=== PATIENT | female | born 1990 | race Caucasian/White ===

== ENCOUNTER 2021-11-01 12:02 | Inpatient (IN) ==
[2021-11-01] MEDS ORDERED: OXYTOCIN 30 UNITS/500 ML BAG IV PRN (22:58)
[2021-11-01] MEDS ORDERED: PATIENT'S ALLERGY INFO NEEDS ENTERED SCH (23:15)
[2021-11-01 23:22] LABS: Hematocrit (blood only) 38.5 % (37-47); Hemoglobin 13.2 g/dL (12.0-16.0); Mean Corpuscular Hemoglobin 31.1 pg (25-34); Mean Corpuscular Hgb Conc 34.3 g/dL (32-36); Mean Corpuscular Volume 90.6 fL (80-100); Mean Platelet Volume 11.4 fL (7.4-10.4); Platelet Count 231 K/uL (130-400); RDW Coefficient of Variation 14.7 % (11.5-14.5); RDW Standard Deviation 48.1 fL (36.4-46.3); Red Blood Count 4.25 M/uL (4.2-5.4); White Blood Count 15.05 K/uL (4.8-10.8)
[2021-11-01] MEDS: LACTATED RINGER'S 1,000 ML IV PRN (23:46)
[2021-11-01] MEDS ORDERED: DINOPROSTONE 10 MG INSERT PV ONE (23:48)
[2021-11-02] MEDS: LACTATED RINGER'S 1,000 ML IV PRN ×3 (05:06→16:52)
[2021-11-02] MEDS ORDERED: BUTORPHANOL TARTRATE 1 MG/ML VIAL IV PRN (09:43)
[2021-11-02] MEDS ORDERED: BUTORPHANOL TARTRATE 1 MG/ML VIAL ONE (09:49)
[2021-11-02] MEDS ORDERED: ePHEDrine sulfate 50 MG/ML AMP ONE (13:01)
[2021-11-02] MEDS ORDERED: SODIUM CHLORIDE 0.9% INJ 10 ML VIAL ONE (13:01)
[2021-11-02] MEDS ORDERED: fentaNYL 2MCG/ML ROPIVACAINE 1.25MG/ML 100 ML BAG EPI ONE (13:01)
[2021-11-02] MEDS ORDERED: BUPIVACAINE 0.25% 30 ML VIAL ONE (13:01)
[2021-11-02] MEDS ORDERED: fentaNYL citrate 100 MCG/2 ML VIAL ONE (13:01)
[2021-11-02] MEDS ORDERED: ePHEDrine sulfate 50 MG/ML AMP IV PRN (13:17)
[2021-11-02] MEDS ORDERED: diphenhydrAMINE 50 MG/ML VIAL IV PRN (13:17)
[2021-11-02] MEDS ORDERED: NALOXONE HCL 1 MG in SODIUM CHLORIDE 0.9% 1000ML 1,000 ML IV PRN (13:17)
[2021-11-02] MEDS ORDERED: NALOXONE HCL 0.4 MG/1 ML VIAL/CARP IV PRN (13:17)
[2021-11-02] MEDS ORDERED: ONDANSETRON INJ 2 MG/ML 2 ML VIAL IV PRN (13:17)
[2021-11-02] MEDS ORDERED: NALBUPHINE HCL INJ 10 MG/ML AMP IV PRN (13:17)
--- NOTE | 2021-11-02 13:17 | Anesthesiology Consultation ---
Date of Service November 02, 2021 Assessment & Plan (1) Encounter for pre-operative examination: Chart Review Chart Review: Patient NOT seen in Pre Admission Testing and Acceptable Risk for Labor Epidural Consults Requested none History Height/Weight Height: 5 ft 5 in Weight: 84.368 kg Allergies Allergy/AdvReac Type Severity Reaction Status Date / Time amoxicillin [From Augmentin] Allergy Rash Verified 11/01/21 23:32 clavulanic acid Allergy Rash Verified 11/01/21 23:32 [From Augmentin] Medications Home Medications Medication Instructions Recorded Confirmed Last Taken sertraline 25 mg tablet (Zoloft) 25 mg PO DAILY 11/01/21 11/01/21 11/01/21 Active Medications Generic Name Dose Route Start Last Admin Trade Name Freq PRN Reason Stop Dose Admin Butorphanol Tartrate 1 mg 11/02/21 09:43 11/02/21 09:54 Butorphanol Tartrate 1 Mg/Ml Vial IV 1 mg PRN PRN Administration Pain Lactated Ringer's 1,000 mls @ 125 mls/hr 11/01/21 22:58 11/02/21 12:52 Lr IV 11/03/21 22:57 999 mls/hr .Q8H PRN Administration L&D Protocol Protocol Past Medical History Medical History Depression with anxiety Social History Smoking Status: Never smoker Hx Alcohol Use: No Hx Substance Use: No Physical Exam Vital Signs Last Vital Signs Temp 36.7 C 11/02/21 07:32 Pulse 122 H 11/02/21 13:10 Resp 22 11/02/21 07:32 BP 122/66 11/02/21 07:34 Pulse Ox 98 11/02/21 13:10 Testing Laboratory Results 11/01/21 23:10
[2021-11-02] MEDS: fentaNYL 2MCG/ML ROPIVACAINE 1.25MG/ML 100 ML BAG EPI PRN ×2 (13:45→22:53)
[2021-11-02] MEDS ORDERED: OXYTOCIN 30 UNITS/500 ML BAG IV PRN (13:52)
[2021-11-02] MEDS ORDERED: CALCIUM CARBONATE 500 MG CHEWABLE TAB PO PRN (19:02)
[2021-11-03] MEDS: LACTATED RINGER'S 1,000 ML IV PRN (00:36)
[2021-11-03] MEDS ORDERED: LIDOCAINE 2%/EPINEPHRINE 1:200,000 20 ML SDV ONE (01:54)
[2021-11-03] MEDS ORDERED: CITRIC ACID/SODIUM CITRATE 15 ML UDC PO SCH (02:00)
[2021-11-03] MEDS ORDERED: cefOXitin 2,000 MG in DEXTROSE 5% 50 ML IV SCH (02:00)
[2021-11-03] MEDS ORDERED: ONDANSETRON INJ 2 MG/ML 2 ML VIAL ONE (02:37)
[2021-11-03] MEDS ORDERED: MoRPHine SULFATE PF 1 MG/ML 10 ML AMP/VIAL ONE (02:37)
[2021-11-03] MEDS ORDERED: KETOROLAC 30 MG/ML VIAL ONE (03:03)
[2021-11-03] MEDS ORDERED: OXYTOCIN 10 UNITS/ML 10ML VIAL ONE ×4 (03:03→03:08)
[2021-11-03] MEDS ORDERED: MAGNESIUM HYDROXIDE SUSP 30 ML UDC PO PRN (03:31)
[2021-11-03] MEDS ORDERED: SUPERCREAM 0.870% 15 GM JAR EXT PRN (03:31)
[2021-11-03] MEDS ORDERED: SENNA 8.6 MG TAB PO PRN (03:31)
[2021-11-03] MEDS ORDERED: DIPHTHERIA/TETANUS/PERTUSSIS 0.5 ML SYR/VIAL IM ONE (03:31)
[2021-11-03] MEDS ORDERED: ONDANSETRON INJ 2 MG/ML 2 ML VIAL IV PRN (03:31)
[2021-11-03] MEDS ORDERED: BENZOCAINE 20% AER SPR 82.5 GM CAN EXT PRN (03:31)
[2021-11-03] MEDS ORDERED: HYDROCORTISONE ACETATE 25 MG SUPP PR PRN (03:31)
--- NOTE | 2021-11-03 03:31 | Post Operative Brief Note ---
Immediate Post Op Note v1 Date of Surgery November 03, 2021 Pre & Post Diagnosis Operation Date: 11/03/21 01:30 Pre-Op Diagnosis: 1. Cephalopelvic Disproportion Post-Op Diagnosis: Same as pre operative I identified the patient and participated in the time-out.: Yes Procedure Operation Date: 11/03/21 01:30 Actual Procedures p Section in LD(Bilateral) - Perez Giordano MD Surgeon Perez Giordano MD Parliamentary Librarian none Estimated Blood Loss 550 Findings Consistent with Post-Op Diagnosis Drains Bailey Catheter Anesthesia Type Labor Epidural Complications none
[2021-11-03] MEDS ORDERED: OXYTOCIN 20 UNITS in LACTATED RINGER'S 20 ML IV SCH (03:45)
[2021-11-03] MEDS ORDERED: LACTATED RINGER'S 1,000 ML IV SCH (03:45)
[2021-11-03] MEDS ORDERED: HYDROmorphone INJ 0.5 MG/0.5 ML SYR IV PRN (03:49)
[2021-11-03] MEDS ORDERED: diphenhydrAMINE 50 MG/ML VIAL IV PRN ×2 (03:49→21:50)
[2021-11-03] MEDS ORDERED: ACETAMINOPHEN 1000 MG/100 ML IV IV PRN (03:49)
[2021-11-03] MEDS ORDERED: ePHEDrine sulfate 50 MG/ML AMP IV PRN (03:49)
[2021-11-03] MEDS ORDERED: NALOXONE HCL 1 MG in SODIUM CHLORIDE 0.9% 1000ML 1,000 ML IV PRN (03:49)
[2021-11-03] MEDS ORDERED: PROMETHAZINE HCL 25 MG in SODIUM CHLORIDE 0.9% 50 ML IV PRN ×2 (03:49→21:50)
[2021-11-03] MEDS ORDERED: NALOXONE HCL 0.08 MG in SYRINGE 1.8 ML IV PRN (03:49)
[2021-11-03] MEDS ORDERED: NALBUPHINE HCL INJ 10 MG/ML AMP IV PRN (03:49)
[2021-11-03] MEDS ORDERED: NALOXONE HCL 0.4 MG/1 ML VIAL/CARP IV PRN (03:49)
[2021-11-03] MEDS ORDERED: MoRPHine SULFATE PF 1 MG/ML 10 ML AMP/VIAL EPI ONE (03:49)
[2021-11-03] MEDS ORDERED: LACTATED RINGER'S 500 ML IV PRN (03:49)
--- NOTE | 2021-11-03 03:49 | Anesthesia Procedure Note ---
Date of Service November 03, 2021 Anesthesia Post Epidural Note Vital Signs Vital Signs: Temp Pulse Resp BP Pulse Ox 37.2 C 81 20 103/52 L 94 11/03/21 01:48 11/03/21 03:44 11/03/21 01:55 11/03/21 03:41 11/03/21 03:44 Notes Mental Status: alert / awake / arousable and participated in evaluation Nausea / Vomiting: adequately controlled Pain: adequately controlled Airway Patency, RR, SpO2: stable & adequate BP & HR: stable & adequate Hydration State: stable & adequate Neuraxial Anesthesia: was administered and sensory block is resolving Anesthetic Complications: no major complications apparent and Pt Satisfied with anesthetic care Epidural: Removed without complications and With tip intact
[2021-11-03] MEDS ORDERED: NO NARCOTICS OR SEDATIVES SCH (04:00)
[2021-11-03] MEDS ORDERED: DC INTRASPINAL MORPHINE SCH (04:00)
[2021-11-03] MEDS ORDERED: SODIUM CHLORIDE 0.9% 1000ML 1,000 ML IV SCH ×2 (04:00→06:00)
--- NOTE | 2021-11-03 04:52 | Anesthesiology Progress Note ---
Date of Service November 03, 2021 Anesthesia Post Procedure Vital Signs Vital Signs: Temp Pulse Resp BP Pulse Ox 11/03/21 04:51 97 H 121/56 L 11/03/21 04:47 96 H 97 11/03/21 04:42 93 H 97 11/03/21 04:41 94 H 120/64 11/03/21 04:37 97 H 96 11/03/21 04:32 101 H 96 11/03/21 04:31 118/59 L 11/03/21 04:27 101 H 96 11/03/21 04:22 105 H 114/58 L 95 11/03/21 04:17 98 H 96 11/03/21 04:12 99 H 96 11/03/21 04:11 96 H 109/59 L 11/03/21 04:07 101 H 95 11/03/21 04:06 98 H 93 11/03/21 04:02 96 H 98 11/03/21 04:00 85 103/58 L 11/03/21 03:57 87 97 11/03/21 03:52 85 99/51 L 97 11/03/21 03:50 18 11/03/21 03:49 88 94 11/03/21 03:47 82 96 11/03/21 03:44 81 94 11/03/21 03:42 82 96 11/03/21 03:41 80 103/52 L 11/03/21 03:40 37.9 C H 18 11/03/21 02:09 127 H 121/64 11/03/21 02:08 131 H 95 11/03/21 02:06 125 H 131/75 11/03/21 02:03 121 H 92 11/03/21 01:58 112 H 98 11/03/21 01:55 20 11/03/21 01:53 111 H 96 11/03/21 01:48 37.2 C 120 H 94 11/03/21 01:43 113 H 96 11/03/21 01:38 119 H 96 11/03/21 01:33 111 H 97 11/03/21 01:30 20 11/03/21 01:29 101 H 129/65 11/03/21 01:28 109 H 97 11/03/21 01:23 106 H 96 11/03/21 01:18 115 H 95 11/03/21 01:15 20 11/03/21 01:13 138 H 97 11/03/21 01:08 111 H 97 11/03/21 01:07 126 H 86 L 11/03/21 01:03 109 H 93 11/03/21 01:00 20 11/03/21 00:59 110 H 121/70 11/03/21 00:57 125 H 93 11/03/21 00:52 115 H 96 11/03/21 00:50 36.8 C 11/03/21 00:47 110 H 96 11/03/21 00:45 20 11/03/21 00:42 103 H 97 11/03/21 00:37 115 H 98 11/03/21 00:32 114 H 98 11/03/21 00:30 20 11/03/21 00:29 121 H 121/82 11/03/21 00:28 122 H 81 L 11/03/21 00:26 123 H 98 11/03/21 00:21 136 H 83 L 11/03/21 00:19 130 H 84 L 11/03/21 00:16 119 H 117/73 94 11/03/21 00:15 20 11/03/21 00:11 130 H 86 L 11/03/21 00:06 127 H 94 11/03/21 00:01 127 H 82 L 11/03/21 00:00 20 11/02/21 23:59 121 H 82 L 11/02/21 23:56 115 H 94 11/02/21 23:52 114 H 82 L 11/02/21 23:51 115 H 97 11/02/21 23:46 121 H 134/68 11/02/21 23:45 116 H 20 84 L 11/02/21 23:40 115 H 94 11/02/21 23:35 117 H 96 11/02/21 23:32 126 H 85 L 11/02/21 23:31 117 H 125/74 11/02/21 23:30 120 H 20 97 11/02/21 23:25 141 H 95 11/02/21 23:20 117 H 91 11/02/21 23:15 37.4 C 113 H 18 93 11/02/21 23:14 113 H 117/57 L 11/02/21 23:10 115 H 95 11/02/21 23:05 109 H 96 11/02/21 23:00 112 H 18 116/56 L 94 11/02/21 22:55 113 H 98 11/02/21 22:50 113 H 97 11/02/21 22:45 118 H 95 11/02/21 22:44 112 H 125/69 11/02/21 22:40 113 H 95 11/02/21 22:35 110 H 99 11/02/21 22:30 117 H 18 100 11/02/21 22:29 109 H 125/72 11/02/21 22:25 108 H 95 11/02/21 22:20 114 H 99 11/02/21 22:19 130 H 84 L 11/02/21 22:15 111 H 97 11/02/21 22:14 109 H 117/60 11/02/21 22:10 111 H 95 11/02/21 22:05 112 H 95 11/02/21 22:01 108 H 114/56 L 11/02/21 22:00 113 H 18 95 11/02/21 21:56 122 H 91 11/02/21 21:55 123 H 94 11/02/21 21:50 114 H 95 11/02/21 21:45 106 H 94 11/02/21 21:44 112 H 112/65 11/02/21 21:40 117 H 95 11/02/21 21:35 104 H 99 11/02/21 21:30 121 H 18 97 11/02/21 21:29 108 H 122/72 11/02/21 21:28 107 H 90 11/02/21 21:25 99 H 99 11/02/21 21:21 109 H 89 L 11/02/21 21:20 37.8 C H 105 H 99 11/02/21 21:15 104 H 125/79 94 11/02/21 21:10 104 H 96 11/02/21 21:05 106 H 99 11/02/21 21:01 113 H 90 11/02/21 21:00 110 H 18 136/89 95 11/02/21 20:55 102 H 98 11/02/21 20:50 100 H 97 11/02/21 20:45 110 H 119/74 96 11/02/21 20:40 105 H 98 11/02/21 20:35 107 H 97 11/02/21 20:30 104 H 18 96 11/02/21 20:29 100 H 119/73 11/02/21 20:25 109 H 96 11/02/21 20:24 112 H 88 L 11/02/21 20:20 101 H 99 11/02/21 20:16 97 H 132/80 11/02/21 20:15 106 H 94 11/02/21 20:14 103 H 87 L 11/02/21 20:10 93 H 96 11/02/21 20:05 98 H 95 11/02/21 20:00 108 H 94 11/02/21 19:59 100 H 102/56 L 11/02/21 19:55 94 H 95 11/02/21 19:50 99 H 94 11/02/21 19:45 101 H 102/59 L 95 11/02/21 19:40 102 H 95 11/02/21 19:35 98 H 96 11/02/21 19:30 92 H 18 96 11/02/21 19:29 100 H 96/52 L 11/02/21 19:25 96 H 96 11/02/21 19:20 98 H 96 11/02/21 19:16 36.9 C 90 18 97/53 L 11/02/21 19:15 98 H 89/51 L 95 11/02/21 19:12 36.9 C 18 11/02/21 19:10 103 H 92 11/02/21 19:09 120 H 89 L 11/02/21 19:05 116 H 96 11/02/21 19:01 105 H 121/68 11/02/21 19:00 106 H 98 11/02/21 18:55 102 H 94 11/02/21 18:50 93 H 95 11/02/21 18:46 100 H 111/67 11/02/21 18:45 96 H 96 11/02/21 18:40 104 H 95 11/02/21 18:35 105 H 95 11/02/21 18:30 92 H 95 11/02/21 18:29 100 H 106/64 11/02/21 18:25 91 H 94 11/02/21 18:22 112 H 89 L 11/02/21 18:20 94 H 94 11/02/21 18:15 105 H 107/63 95 11/02/21 18:10 96 H 95 11/02/21 18:05 100 H 95 11/02/21 18:00 98 H 97 11/02/21 17:59 93 H 109/67 11/02/21 17:57 98 H 83 L 11/02/21 17:55 100 H 94 11/02/21 17:50 100 H 95 11/02/21 17:45 104 H 111/68 97 11/02/21 17:42 98 H 93 11/02/21 17:40 99 H 95 11/02/21 17:36 100 H 92 11/02/21 17:35 92 H 85 L 11/02/21 17:31 98 H 89 L 11/02/21 17:30 101 H 96 11/02/21 17:29 88 103/57 L 11/02/21 17:25 36.7 C 96 H 18 96 11/02/21 17:20 98 H 95 11/02/21 17:19 96 H 93 11/02/21 17:15 98 H 97 11/02/21 17:14 100 H 106/61 11/02/21 17:10 100 H 96 11/02/21 17:08 94 H 94 11/02/21 17:05 97 H 96 11/02/21 17:00 94 H 113/60 99 11/02/21 16:59 99 H 92 11/02/21 16:55 102 H 98 11/02/21 16:52 97 H 91 11/02/21 16:50 99 H 95 11/02/21 16:47 111 H 92 11/02/21 16:45 107 H 98 11/02/21 16:40 98 H 97 11/02/21 16:35 107 H 98 11/02/21 16:30 98 H 96 11/02/21 16:29 100 H 110/62 11/02/21 16:26 94 H 94 11/02/21 16:25 90 95 11/02/21 16:20 96 H 96 11/02/21 16:15 98 H 97 11/02/21 16:14 98 H 119/56 L 11/02/21 16:10 91 H 98 11/02/21 16:08 101 H 94 11/02/21 16:05 109 H 97 11/02/21 16:00 108 H 98 11/02/21 15:59 101 H 134/59 L 11/02/21 15:55 102 H 97 11/02/21 15:50 104 H 98 11/02/21 15:45 92 H 95 11/02/21 15:44 100 H 110/59 L 11/02/21 15:42 96 H 94 11/02/21 15:40 100 H 95 11/02/21 15:36 91 H 94 11/02/21 15:35 100 H 95 11/02/21 15:30 94 H 96 11/02/21 15:29 102 H 111/60 11/02/21 15:25 100 H 96 11/02/21 15:22 98 H 93 11/02/21 15:20 105 H 97 11/02/21 15:15 94 H 106/59 L 96 11/02/21 15:10 100 H 96 11/02/21 15:05 96 H 97 11/02/21 15:00 98 H 96 11/02/21 14:55 99 H 97 11/02/21 14:50 96 H 97 11/02/21 14:45 98 H 97 11/02/21 14:44 93 H 109/64 11/02/21 14:40 100 H 98 11/02/21 14:36 118 H 93 11/02/21 14:35 115 H 100 11/02/21 14:30 99 H 98 11/02/21 14:29 102 H 109/65 11/02/21 14:27 101 H 112/68 11/02/21 14:25 117 H 105/63 97 11/02/21 14:23 115 H 103/57 L 11/02/21 14:21 111 H 119/60 11/02/21 14:20 116 H 97 11/02/21 14:19 116 H 113/55 L 11/02/21 14:17 120 H 107/68 11/02/21 14:15 126 H 98 11/02/21 14:14 110 H 107/62 11/02/21 14:13 113 H 110/59 L 11/02/21 14:11 129 H 112/65 11/02/21 14:10 130 H 98 11/02/21 14:09 116 H 112/65 11/02/21 14:07 129 H 108/59 L 11/02/21 14:05 124 H 107/61 98 11/02/21 14:03 120 H 114/64 11/02/21 14:01 58 L 103/58 L 11/02/21 14:00 118 H 98 11/02/21 13:58 120 H 100/56 L 11/02/21 13:57 125 H 100/59 L 11/02/21 13:55 126 H 112/57 L 98 11/02/21 13:53 116 H 116/59 L 11/02/21 13:51 112 H 120/56 L 11/02/21 13:50 109 H 98 11/02/21 13:49 111 H 162/63 H 11/02/21 13:47 118 H 115/61 11/02/21 13:45 119 H 113/68 98 11/02/21 13:43 102 H 113/78 11/02/21 13:41 86 123/80 11/02/21 13:40 94 H 98 11/02/21 13:35 113 H 98 11/02/21 13:30 116 H 98 11/02/21 13:27 36.7 C 11/02/21 13:25 119 H 99 11/02/21 13:20 118 H 99 11/02/21 13:15 111 H 98 11/02/21 13:10 122 H 98 11/02/21 07:34 102 H 122/66 11/02/21 07:32 36.7 C 22 Pain Intensity Bilateral Abdomen: Pain Intensity: 2 Transfer of Care Handoff Completed per policy Notes Mental Status: alert / awake / arousable and participated in evaluation Nausea / Vomiting: adequately controlled Pain: adequately controlled Airway Patency, RR, SpO2: stable & adequate BP & HR: stable & adequate Hydration State: stable & adequate Neuraxial Anesthesia: was administered and sensory block is resolving Anesthetic Complications: no major complications apparent and Pt Satisfied with anesthetic care
--- NOTE | 2021-11-03 05:25 | History and Physical Report ---
CHIEF COMPLAINT: Arrest of labor. HISTORY OF PRESENT ILLNESS: The patient is a 31-year-old 1, para 0. She is in good general health. She has had an uneventful course. Her due date was 10/24/2021. She was brought in for induction of labor. Her cervix was like 1-2 cm. She was having sporadic contractions, so we us ed a Cervidil tape. Membranes were then ruptured surgically and by the time the surgical tape was re moved, she was about 4 cm, completely effaced. We then went to IV Pitocin. We stimulated her with I V Pitocin. She went to full dilatation. She pushed for over 2 hours. She was unable to bring the h ead down. There was a lot of molding. When I would have her push with her contractions, the head es sentially would not move. I was unable to feel any of the sutures on the head, indicating that the h ead was quite high. She was given a diagnosis of cephalopelvic disproportion and then scheduled for primary section. ALLERGIES: SHE IS ALLERGIC TO AUGMENTIN, SHE GOT A RASH A CHILD. PAST SURGICAL HISTORY: She had a tonsillectomy and adenoidectomy. She had eye surgery. MEDICAL HISTORY: No history of rheumatic fever, heart disease, heart murmur, diabetes, tuberculosis. SOCIAL HISTORY: No smoking, no alcohol intake. Works in [employer]. FAMILY HISTORY: Mom 77, who has had breast cancer and ovarian cancer. Father is 65, high blood pres sure. She has half-brothers and sisters, none of them have any significant medical issues. PHYSICAL EXAMINATION: GENERAL: Well-developed, well-nourished 31-year-old white female, alert, oriented x3, and cooperativ e, in no acute distress, appeared her stated age. HEAD: No symptoms of frequent or severe headaches. Normocephalic, normal distribution of hair. EYES: No symptoms of blurred vision or double vision. Conjunctivae are pink. Sclerae white, no kwaku dence of jaundice. EARS: No symptoms of frequent ear infection or difficulty hearing. Ears had normal light reflex [place] aterally. NOSE: Had normal mucosa. Septum is midline. There were no polyps. THROAT: Had no erythema or evidence of infection. Teeth are in good state of repair. NECK: Supple. Trachea midline. Thyroid is not enlarged. There is no adenopathy appreciated. Both carotids are of good intensity. CHEST: Clear to auscultation and percussion. No wheezes, rales, or rhonchi appreciated. HEART: Had regular rhythm. S1 and S2 are normal. BREASTS: Normal. ABDOMEN: Revealed a term size fetus. Estimated weight 8 pounds. There is no CVA tenderness. There were good strong contractions every 2-3 minutes, lasting for over a minute. PELVIC: Revealed a large amount of molding. The head at about a -2 station. MUSCULOSKELETAL: Revealed no calf tenderness. IMPRESSION OF THIS CASE: Status post tonsillectomy and adenoidectomy. Cephalopelvic disproportion, suspected macrosomia. Job ID: [id number]
[2021-11-03] MEDS ORDERED: OXYTOCIN 20 UNITS in LACTATED RINGER'S 1,000 ML IV SCH (07:30)
--- NOTE | 2021-11-03 08:06 | Operative Report (OR) ---
DATE OF PROCEDURE: 11/03/2021. PROCEDURE: Primary low segment section. INDICATIONS FOR SURGERY: Post-term cephalopelvic disproportion. PREOPERATIVE DIAGNOSES: Post-term meconium-stained amniotic fluid, cephalopelvic disproportion. Del ivered live meconium stained male. SURGEON: Janet Giordano MD. ANESTHESIA: Epidural. ESTIMATED BLOOD LOSS: 550 mL. OPERATIVE FINDING AND PROCEDURE: The patient was brought to the OR table, correctly identified by glendy roberson and conversation. Compression stockings were applied. A Bailey catheter was inserted aseptical ly in the bladder, connected to gravity drainage. Lower abdomen was painted with an alcohol based st erilizing solution. It was allowed to dry for 3 minutes. Then, the level of the anesthesia was test ed and found to be adequate. The patient was draped in the usual sterile fashion. Pfannenstiel inci odell was made and carried down to the anterior fascia by sharp dissection. Hemostasis was secured by electrocauterization. Fascia was incised in the midline, exposing the rectus muscle, which were car efully identified, dissected free and then the midline between the rectus muscle was entered. Perito neum was entered carefully. Then, a bladder retractor was used to retract the lower uterine segment. The bladder was high to the patient being in labor for a long time, incision was made above the vesicouterine fold. Bladder was undermined bluntly, pushed out of the operative field. Lower uterine segment was scored with a knif e and entered bluntly with the scissors. Meconium stained amniotic fluid was noted at this time, inc ision was extended laterally. Art Supervisor's hand was inserted into the uterine cavity and with fundal pr essure, the infant's head was delivered without difficulty. was suctioned through the mouth a nd the nose. There was a nuchal cord x2, which was reduced around the head. Then, the body of the i nfant was delivered. We allowed the cord to pulse for a minute, then clamp and cut the cord and hand ed the off to the program medical director who was scrubbed and present at the time of delivery. Following this, cord blood was taken. Placenta was removed manually. The uterus, tubes, and ovary w ere brought out through the incision. Uterine cavity was cleansed with a clean sponge. 10 units of Pitocin was injected into the myometrium. The lower uterine defect was approximated in layers. The deep layer was approximated with a running heavy chromic. Then, the endopelvic fascial layer was fahad roximated over that with a heavy duty Vicryl and then 2 interrupted sutures of heavy duty Vicryl were used to complete the approximation of the incision and to complete hemostasis. Following this, hemo stasis was good. The posterior broad ligament was checked. Pelvis was cleansed of all blood clots a nd debris. Uterus, tubes, and ovaries were reinserted into the abdominal cavity. The peritoneal edges were rest ored which restored the integrity of the vesicouterine fold. Hemostasis was excellent. Careful pankaj omical approximation of the anterior abdominal wall was performed. The peritoneum was closed with co ntinuous running chromic. Recti muscles were approximated with interrupted [id number] suture ch romic. Fascia was closed with continuous interlocking suture of Vicryl on each side tied in the midl ine. Subcutaneous was approximated with a running plain and skin edges were approximated with staple clips. Job ID: [id number]
[2021-11-03] MEDS: SIMETHICONE 80 MG CHEW PO SCH ×4 (08:29→20:01)
[2021-11-03] MEDS: PRENATAL VITAMIN 1 TAB PO SCH (08:30)
[2021-11-03] MEDS: FERROUS SULFATE 325 MG TAB PO SCH (08:30)
[2021-11-03] MEDS: DOCUSATE SODIUM 100 MG CAP PO SCH ×2 (08:30→20:01)
[2021-11-03] MEDS: KETOROLAC 30 MG/ML VIAL IV PRN ×2 (12:40→18:25)
[2021-11-03] MEDS ORDERED: diphenhydrAMINE Capsule 25 MG CAP PO PRN (21:50)
[2021-11-03] MEDS ORDERED: KETOROLAC 30 MG/ML VIAL IV PRN (21:50)
[2021-11-03] MEDS ORDERED: ZOLPIDEM TARTRATE 5 MG TAB PO PRN (21:50)
[2021-11-03] MEDS ORDERED: MEPERIDINE HCL 50 MG/ML CARP IV PRN (21:50)
[2021-11-03] MEDS: oxyCODONE/ACETAMINOPHEN 5mg/325mg TAB PO PRN (22:29)
[2021-11-04 06:40] LABS: Basophils # (auto) 0.01 K/uL (0-0.2); Basophils % (auto) 0.1 %; Eosinophils # (auto) 0.08 K/uL (0-0.5); Eosinophils % (auto) 0.5 %; Hematocrit (blood only) 28.5 % (37-47); Hemoglobin 9.5 g/dL (12.0-16.0); Immature Granulocytes % (auto) 0.7 %; Lymphocytes # (auto) 1.94 K/uL (1.2-3.4); Lymphocytes % (auto) 12.9 %; Mean Corpuscular Hemoglobin 30.5 pg (25-34); Mean Corpuscular Hgb Conc 33.3 g/dL (32-36); Mean Corpuscular Volume 91.6 fL (80-100); Mean Platelet Volume 11.2 fL (7.4-10.4); Monocytes # (auto) 0.92 K/uL (0.11-0.59); Monocytes % (auto) 6.1 %; Neutrophils # (auto) 12.01 K/uL (1.4-6.5); Neutrophils % (auto) 79.7 %; Platelet Count 174 K/uL (130-400); RDW Coefficient of Variation 14.8 % (11.5-14.5); RDW Standard Deviation 49.7 fL (36.4-46.3); Red Blood Count 3.11 M/uL (4.2-5.4); White Blood Count 15.06 K/uL (4.8-10.8)
[2021-11-04] MEDS: oxyCODONE/ACETAMINOPHEN 5mg/325mg TAB PO PRN ×4 (08:09→20:30)
[2021-11-04] MEDS: DOCUSATE SODIUM 100 MG CAP PO SCH ×2 (08:09→20:29)
[2021-11-04] MEDS: SIMETHICONE 80 MG CHEW PO SCH ×4 (08:09→20:29)
[2021-11-04] MEDS: PRENATAL VITAMIN 1 TAB PO SCH (08:09)
[2021-11-04] MEDS: FERROUS SULFATE 325 MG TAB PO SCH (08:09)
[2021-11-04] MEDS: IBUPROFEN 600 MG TAB PO PRN ×4 (08:10→20:30)
--- NOTE | 2021-11-04 08:45 | Obstetrical Progress Note ---
Date of Service November 04, 2021 Assessment & Plan Admission and Anticipated Discharge Date Admission Date: November 01, 2021 Subjective abdomen soft and non tender passing flatus incision is clean and dry on calf tenderness ambulating well vaginal bleeding scant hgb 9.5 Results & Data ([facility]) Vital Signs (Past 12 Hours) Vital Signs Temp Pulse Resp BP Pulse Ox 11/04/21 00:05 36.9 C 96 H 18 105/72 11/03/21 22:00 18 98 11/03/21 21:00 18 98
[2021-11-04] MEDS: SERTRALINE HCL 50 MG TABLET PO SCH (08:52)
[2021-11-04] MEDS ORDERED: bisacodyL 5 MG TABEC PO SCH (20:00)
[2021-11-05] MEDS: IBUPROFEN 600 MG TAB PO PRN ×3 (00:25→09:56)
[2021-11-05] MEDS: oxyCODONE/ACETAMINOPHEN 5mg/325mg TAB PO PRN ×3 (00:26→09:55)
[2021-11-05] MEDS ORDERED: bisacodyL 10 MG SUPP PR PRN (03:31)
[2021-11-05 07:51] LABS: Hematocrit (blood only) 29.6 % (37-47); Hemoglobin 9.7 g/dL (12.0-16.0)
[2021-11-05] MEDS: PRENATAL VITAMIN 1 TAB PO SCH (08:30)
[2021-11-05] MEDS: SIMETHICONE 80 MG CHEW PO SCH (08:30)
[2021-11-05] MEDS: FERROUS SULFATE 325 MG TAB PO SCH (08:30)
[2021-11-05] MEDS: DOCUSATE SODIUM 100 MG CAP PO SCH (08:30)
--- NOTE | 2021-11-05 09:30 | Obstetrical Progress Note ---
Date of Service November 05, 2021 Assessment & Plan Admission and Anticipated Discharge Date Admission Date: November 01, 2021 Subjective abdomen soft and non tender incision is clean and dry no calf tenderness ambulating well vaginal bleeding scant hgb 9.5 Results & Data ([facility]) Vital Signs (Past 12 Hours) Vital Signs Temp Pulse Resp BP Pulse Ox 11/05/21 07:41 36.4 C L 76 16 107/67 11/05/21 00:25 36.5 C 85 18 116/74 100
[2021-11-05] MEDS: SERTRALINE HCL 50 MG TABLET PO SCH (10:51)
--- NOTE | 2021-11-05 18:06 | Discharge Summary (DS) ---
HOSPITAL COURSE: She is 1, para 1, blood type is O positive. She was admitted for induction being over her due date by over 10 days. Induction was accomplished first by using a Cervidil tape, because on admission she was having too many spontaneous contractions. The tape was left in for abo ut 11 hours and eventually her membranes ruptured with the tape and the string came out and she pulle d it out after about 10 or 11 hours. First checked on admission, she was about 1.5 cm dilated, about 50% effaced. After the tape was out, she was 4-5 cm dilated, 100% effaced. She eventually went on t o have epidural anesthesia. Good pain control and then was augmented with IV Pitocin, went to full d ilatation. We allowed her to labor down. Cervix clear. She pushed for over 2 hours and she was tracy ble to engage the head into the mid pelvis. Diagnosis of cephalopelvic disproportion was made. She t hen subsequently underwent a primary low segment section. Estimated blood loss at the time of procedure was 550 mL. Postoperatively, she did well. She remained afebrile throughout her entire postoperative course. On the second postoperative day, she was ambulating well, eating well. Hemogl obin had stabilized and actually started to rise at about 9.5. There was no calf tenderness. Incisi on was clean and dry. She was given prescriptions for Percocet and Motrin to take while she was home , given the usual postoperative instructions, told to return for removal of stanley and for followup care in the office. Job ID: [id number]
== END 2021-11-05 13:52 | disposition home or self-care (01) | DRG 788 ==
LOC: 4S1 22:53 → 4S2 11-03 06:31